=== PATIENT | female | born 1935 | race Caucasian/White ===

== ENCOUNTER 2022-04-23 17:33 | Inpatient (IN) | payer OTHER, MEDICARE ==
[~2022-04-23] VITALS: Ht 167.6 cm; Wt 58.1 kg
[2022-04-23 17:40] VITALS: BP_SYST 128
--- NOTE | 2022-04-23 17:49 | NUR ---
DR. ESCOTO AT BEDSIDE.
--- NOTE | 2022-04-23 18:20 | NUR ---
PT TAKEN FOR CT SCAN.
[2022-04-23 18:28] LABS: BASOPHILS % (AUTO) 0.5 % (0.0-2.0); EOSINOPHILS # (AUTO) 0.5 K/uL (0.0-0.4); EOSINOPHILS % (AUTO) 8.1 % (0.0-4.0); HEMATOCRIT 32.6 % (36-48); LYMPHOCYTES # (AUTO) 0.6 K/uL (1.0-5.5); LYMPHOCYTES % (AUTO) 9.5 % (20.5-51.5); MEAN CORPUSCULAR VOLUME 84 fL (79.0-98.0); MONOCYTES # (AUTO) 0.6 K/uL (0.0-1.0); MONOCYTES % (AUTO) 10.4 % (1.7-9.3); NEUTROPHILS # (AUTO) 4.2 K/uL (1.8-7.7); NEUTROPHILS % (AUTO) 71.5 % (40.0-70.0); PLATELET COUNT (AUTO) 295 K/uL (130-430); RED BLOOD CELL COUNT(AUTO) 3.87 MIL/uL (4.2-6.2); RED CELL DISTRIBUTION WIDTH 13.1 % (9.0-15.0); WHITE BLOOD COUNT (AUTO) 5.9 K/uL (4.8-10.8)
[2022-04-23 18:38] LABS: ANION GAP 4 (5-15); CALCIUM 8.6 mg/dL (8.4-11.0); CHLORIDE 97 mmol/L (98-107); CREATININE 1.85 mg/dL (0.55-1.30); GLUCOSE 146 mg/dL (70-99); UREA NITROGEN, BLOOD 48 mg/dL (8-21)
--- NOTE | 2022-04-23 18:39 | NUR ---
Placed in room 2 . Placed on ekg monitor, blood pressure machine and pulse oximeter. To gown for exam. Side rails up.
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
--- NOTE | 2022-04-23 18:42 | NUR ---
RECEIVED PT FROM JASMYN BALDERRAMA. ASSUMED CARE.
[2022-04-23 18:46] LABS: ALANINE AMINOTRANSFERASE 73 U/L (12-78); ALBUMIN 2.2 g/dL (3.4-4.8); ASPARTATE AMINOTRANSFERASE 100 U/L (10-37); TOTAL BILIRUBIN 0.3 mg/dL (0.0-1.0)
[2022-04-23 18:54] LABS: ACETAMINOPHEN < 1 ug/mL (1-30); ALCOHOL, BLOOD < 3 mg/dL (<10)
[2022-04-23] MEDS ORDERED: DIPHTH,PERTUSS(ACELL),TET VAC 0.5 ML VIAL (Tdap) I.M. ONE (19:15)
--- NOTE | 2022-04-23 19:20 | NUR ---
ALL CARE ENDORSED TO JASMYN ABAD. ALL QUESTIONS AND CONCERNS ADDRESSED.
--- NOTE | 2022-04-23 20:25 | NUR ---
Urine collected and sent to lab.
[2022-04-23 20:54] LABS: BILIRUBIN,URINE NEGATIVE (NEGATIVE); BLOOD, URINE NEGATIVE (NEGATIVE); CLARITY/URINE CLEAR (CLEAR); COLOR,URINE YELLOW (YELLOW); GLUCOSE,URINE NEGATIVE (NEGATIVE); KETONES,URINE NEGATIVE (NEGATIVE); LEUKOCYTE ESTERASE ,URINE NEGATIVE (NEGATIVE); NITRITE, URINE POSITIVE (NEGATIVE); PH,URINE 5.5 (5.0-8.0); PROTEIN URINE TRACE (NEGATIVE); UROBILINOGEN,URINE 0.2 (0.2-1.0)
[2022-04-23 21:20] LABS: BACTERIA,URINE MANY /HPF (None Seen); RBC,URINE NONE SEEN /HPF (0-3)
[2022-04-23 21:21] LABS: HYALINE CASTS, URINE 0-10 /LPF (None Seen); MUCUS,URINE 1+ /LPF (None Seen)
[2022-04-23 21:26] LABS: BARBITURATE, URINE NEGATIVE (NEG <=200); BENZODIAZEPINE, URINE NEGATIVE (NEG <=150); CANNABINOID, URINE NEGATIVE (NEG <=50); COCAINE, URINE NEGATIVE (NEG <=150); METHAMPHETAMINES SCREEN,URINE NEGATIVE (NEG <=500); OPIATE, URINE NEGATIVE (NEG <=100); PHENCYCLIDINE SCREEN,URINE NEGATIVE (NEG <=25); UR TRICYCLIC ANTIDEPRESSANTS NEGATIVE (NEG <=300); URINE AMPHETAMINE NEGATIVE (NEG <=500); URINE METHADONE NEGATIVE (NEG <=200); URINE OXYCODONE SCREEN NEGATIVE (NEG <=100); URINE PROPOXYPHENE SCREEN NEGATIVE (NEG <=300)
[2022-04-23] MEDS ORDERED: ONDANSETRON HCL 4 MG/2 ML VIAL IVP PRN (21:30)
[2022-04-23] MEDS ORDERED: DEXTROSE 50% JECT 50 ML DISP.SYRIN IVP PRN (21:30)
[2022-04-23] MEDS ORDERED: ZOLPIDEM TARTRATE 5 MG TABLET PO PRN (21:30)
[2022-04-23] MEDS ORDERED: MUPIROCIN 2% TOPICAL OINTMENT 22 GM NS PRN (21:30)
[2022-04-23] MEDS ORDERED: ACETAMINOPHEN 325 MG TABLET PO PRN (21:30)
[2022-04-23] MEDS ORDERED: MORPHINE 2 MG/ML INJ. SYRINGE IVP PRN ×2 (21:30)
[2022-04-23] MEDS ORDERED: DOCUSATE SODIUM 100 MG CAPSULE PO PRN (21:30)
[2022-04-23] MEDS ORDERED: MAGNESIUM SULFATE 50 ML IV PRN (21:30)
[2022-04-23] MEDS ORDERED: NACL 0.9% 1,000 ML IV ONE (21:45)
--- NOTE | 2022-04-23 22:01 | NUR ---
MARGOTH SANDOVAL collected and sent to lab.
--- NOTE | 2022-04-23 22:51 | NUR ---
Admit bed requested Patient will be admitted to care of . Admitted to MED/SURG unit. 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
[2022-04-23] MEDS: cefTRIAXone 1 GM IVPB PREMIX 50 ML IV SCH (22:53)
--- NOTE | 2022-04-23 23:04 | NUR ---
Ashley provided to pt as requested. Tolerated well.
[2022-04-24] VITALS (7 sets, daily range): BP systolic 131–156
--- NOTE | 2022-04-24 00:05 | NUR ---
Patient will be admitted to care of MD Medina. Admitted to MED SURG unit. Will go to room 133B. Complete and up to date summary report printed. SBAR report given at bedside to JASMYN Kate with opportunity for questions.
[2022-04-24] MEDS: POTASSIUM CHLORIDE 20 MEQ TAB.PRT.SR PO PRN ×3 (00:59→21:19)
--- NOTE | 2022-04-24 05:57 | NUR ---
JONNIE BLAKE( GRANDSON) CALLED TO CHECK ON HIS GRANDMOTHER AND VOICED HE WAS HER MEDICAL POA AND WANTED TO SPEAK WITH A WEB DATABASE DEVELOPER REGARDING OTHER PLACEMENT AT DISCHARGE, HE ALSO MENTIONED HIS GRANDMOTHER COULD BE A HANDFUL AND HOPEFULLY WE WANT SEE THAT SIDE OF HER- NOTE THE NUMBER FOR JONNIE AND THE [facility] DIRECTIVE ON THE CHART. WILL CONTINUE POC AND REPORT TO ONCOMING NURSE.
--- NOTE | 2022-04-24 06:01 | NUR ---
PT VOICED SHE IS NOT DIABETIC AND REFUSED TO HAVE HER BLOOD SUGAR TAKEN- WILL ENDORSE TO ONCOMING NURSE TO ADDRESS WITH MD. WILL CONTINUE POC.
--- NOTE | 2022-04-24 07:00 | NUR ---
receive the pt from val negro rn in a stable condition
--- NOTE | 2022-04-24 07:16 | NUR ---
receive the pt the discovery guide JASMYN Burton in a stable condition admitting dx of Arlyn PNA , Aox$ . no complain of pain . no s/s of SOB . will continue to monitor
[2022-04-24 08:52] LABS: ANION GAP 7 (5-15); CHLORIDE 101 mmol/L (98-107); CREATININE 1.56 mg/dL (0.55-1.30); GLUCOSE 102 mg/dL (70-99); POTASSIUM 3.4 mmol/L (3.5-5.1); UREA NITROGEN, BLOOD 42 mg/dL (8-21)
[2022-04-24 09:06] LABS: BASOPHILS % (AUTO) 0.4 % (0.0-2.0); EOSINOPHILS # (AUTO) 0.8 K/uL (0.0-0.4); EOSINOPHILS % (AUTO) 12.9 % (0.0-4.0); HEMATOCRIT 33.2 % (36-48); LYMPHOCYTES # (AUTO) 0.5 K/uL (1.0-5.5); LYMPHOCYTES % (AUTO) 8.1 % (20.5-51.5); MEAN CORPUSCULAR VOLUME 84 fL (79.0-98.0); MONOCYTES # (AUTO) 0.7 K/uL (0.0-1.0); MONOCYTES % (AUTO) 10.9 % (1.7-9.3); NEUTROPHILS # (AUTO) 4.1 K/uL (1.8-7.7); NEUTROPHILS % (AUTO) 67.7 % (40.0-70.0); PLATELET COUNT (AUTO) 307 K/uL (130-430); RED BLOOD CELL COUNT(AUTO) 3.94 MIL/uL (4.2-6.2); RED CELL DISTRIBUTION WIDTH 13.4 % (9.0-15.0)
[2022-04-24] MEDS ORDERED: amLODIPine BESYLATE 5 MG TABLET PO ONE ×2 (09:30→13:45)
--- NOTE | 2022-04-24 10:05 | NUR ---
was transferred to room 132 A for the sitter
--- NOTE | 2022-04-24 10:08 | NUR ---
pt discharge from the 10 day covid isolation
--- NOTE | 2022-04-24 10:09 | NUR ---
PATIENT IS TOTAL ASSIST WITH HER MOBILITY. UNKNOWN PRIOR LEVEL OF FUNCTION. TRIAL PHYSICAL THERAPY.
--- NOTE | 2022-04-24 10:35 | NUR ---
pt was discharge from 10 day isolation of Covid Addendum: 04/24/22 at 1905 by Evangelina Núñez RN RN wrong pt
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
[2022-04-24] MEDS ORDERED: SERT100T PO (12:12)
[2022-04-24] MEDS ORDERED: CLON-315 PO (12:12)
[2022-04-24] MEDS ORDERED: ALPR0.25 PO (12:12)
[2022-04-24] MEDS ORDERED: HYDR25TA4 PO (12:12)
[2022-04-24] MEDS ORDERED: AMLO5TAB4 PO (12:12)
[2022-04-24] MEDS ORDERED: ASCO500T20 PO (12:12)
[2022-04-24] MEDS ORDERED: PRO40 PO (12:12)
[2022-04-24] MEDS ORDERED: CLO (12:12)
[2022-04-24] MEDS ORDERED: CLON0.1T PO (12:43)
[2022-04-24] MEDS ORDERED: ALPRAZolam 0.25 MG TABLET PO PRN (13:30)
[2022-04-24] MEDS ORDERED: cloNIDine HCL 0.1 MG TABLET PO PRN (13:30)
[2022-04-24] MEDS ORDERED: SERTRALINE HCL 50 MG TABLET PO ONE (13:45)
[2022-04-24] MEDS ORDERED: HYDROCHLOROTHIAZIDE 25 MG TABLET (HCTZ) PO ONE (13:45)
[2022-04-24] MEDS ORDERED: PANTOPRAZOLE SODIUM 40 MG TAB PO ONE (13:45)
[2022-04-24] MEDS ORDERED: ASCORBIC ACID 500 MG TABLET PO ONE (13:45)
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
[2022-04-24] MEDS: NACL 0.9% 1,000 ML IV SCH ×2 (15:14→17:32)
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
--- NOTE | 2022-04-24 18:36 | NUR ---
will endorse to production supervisor off shift RN for continuity of care
--- NOTE | 2022-04-24 19:08 | NUR ---
will endorse to customer account representative RN fo continuity of care
[2022-04-24] MEDS: LORazepam 1 MG TABLET PO PRN (21:19)
[2022-04-24] MEDS: cefTRIAXone 1 GM IVPB PREMIX 50 ML IV SCH (21:30)
[2022-04-24] MEDS ORDERED: cefTRIAXone 1 GM IVPB PREMIX 50 ML IV ONE (22:45)
[2022-04-25 02:00] VITALS: BP_SYST 147
[2022-04-25] MEDS: NACL 0.9% 1,000 ML IV SCH (02:10)
--- NOTE | 2022-04-25 05:10 | NUR ---
THIS RN CALLED TO NURSES STATION TO RECEIVE A CALL FROM DR. BOTELLO- HE ASKED HOW THE PATIENT'S NIGHT WAS AND I INFORMED HIM SHE HAD NO BEHAVIOR OUTBURST, HOWEVER I DID GIVE HER A PRN DOSE OF ATIVAN 1MG PO FOR ANXIETY AND SHE HAS BEEN FINE, SHE SLEPT MAJORITY OF THE NIGHT. MD VOICED HE WOULD BE TRAVELING TODAY TO NOT BE ALARMED IF STAFF COULD NOT REACH HIM IMMEDIATELY THAT HE WOULD RETURN THE PHONE CALL ONCE HE HAD A CHANCE. WILL REPORT TO ONCOMING NURSE- NCA CERTIFIED CONCIERGE AWARE.
--- NOTE | 2022-04-25 05:15 | NUR ---
SHIFT EVENTS BELOW STARTING 04/24/2022 7PM-7AM 1914: THIS RN AT BEDSIDE FOR SHIFT CHANGE- NOTE MD ORDERS FOR SITTER. PATIENT WITHOUT S/S OR C/O ANXIETY AT THIS TIME. HYDRATION AND CALL LIGHT IN EASY REACH- BED ALARM ON AND PROPERLY FUNCTIONING FOR SAFETY. NOTE THIS RN WILL BE THE SITTER FOR THIS SHIFT. 2118: WHILE MAKING MEDICATION ROUNDS THIS RN TO NOTE PATIENT SLIGHTLY ANXIOUS IN REGARDS TO HAVING HER BLOOD SUGAR TAKEN - SHE VOICED " I AM NOT DIABETIC- WHY KEEP STICKING ME?". PATIENT REFUSED HER ACHS PBS MD ORDERED. THIS RN TO NOTE PATIENT'S POTASSIUM 3.4 PER LAB DRAW THIS MORNING-POTASSIUM 40MEQ PO ADMINISTERED AT THIS TIME WITH ATIVAN 1MG PO FOR ANXIETY. 2300 : PATIENT NOTED EATING A SNACK BEFORE BEDTIME AND GOT UP TO USE THE BEDSIDE COMMODE. 0 S/S OF ANXIETY OR BEHAVIOR OUTBURST THUS FAR. 0500: PATIENT RESTING IN BED WITH EYES CLOSED- 0 S/S OF ANXIETY OR BEHAVIOR OUTBURST THIS SHIFT- NOTE eMAR AND FLOWSHEETS THIS SHIFT. SITTER REMAINS PRESENT AT BEDSIDE MD ORDERED. BED ALARM PROPERLY FUNCTIONING FOR SAFETY. 0506: NOTE PT UP TO BEDSIDE COMMODE AND BEGINS TO COMPLAIN THAT IT HURTS WHEN SHE IS VOIDING AND ALSO STATES SHE HAS A SORE THROAT THAT HURTS. THIS RN TO OFFER WARM TEA AND SHE VOICED SHE WOULD TALK TO THE DOCTOR WHEN HE CAME AROUND. WILL CONTINUE POC AND REPORT TO ONCOMING NURSE
[2022-04-25 07:04] LABS: ANION GAP 2 (5-15); CALCIUM 8.7 mg/dL (8.4-11.0); CHLORIDE 105 mmol/L (98-107); CREATININE 1.42 mg/dL (0.55-1.30); GLUCOSE 92 mg/dL (70-99); POTASSIUM 4.5 mmol/L (3.5-5.1); UREA NITROGEN, BLOOD 32 mg/dL (8-21)
[2022-04-25 07:13] LABS: BASOPHILS % (AUTO) 0.3 % (0.0-2.0); EOSINOPHILS % (AUTO) 16.2 % (0.0-4.0); HEMATOCRIT 32.8 % (36-48); LYMPHOCYTES # (AUTO) 0.6 K/uL (1.0-5.5); LYMPHOCYTES % (AUTO) 9.4 % (20.5-51.5); MEAN CORPUSCULAR VOLUME 85 fL (79.0-98.0); MONOCYTES # (AUTO) 0.7 K/uL (0.0-1.0); MONOCYTES % (AUTO) 10.9 % (1.7-9.3); NEUTROPHILS % (AUTO) 63.2 % (40.0-70.0); PLATELET COUNT (AUTO) 330 K/uL (130-430); RED BLOOD CELL COUNT(AUTO) 3.85 MIL/uL (4.2-6.2); RED CELL DISTRIBUTION WIDTH 13.7 % (9.0-15.0); WHITE BLOOD COUNT (AUTO) 6.4 K/uL (4.8-10.8)
[2022-04-25 07:37] VITALS: BP_SYST 163
[2022-04-25] MEDS ORDERED: amLODIPine BESYLATE 5 MG TABLET PO SCH (09:00)
[2022-04-25] MEDS ORDERED: BENZOCAINE/MENTHOL 1 EACH LOZENGE MM PRN (09:15)
--- NOTE | 2022-04-25 09:15 | NUR ---
LUGGAGE REPAIRER [facility] Daysi responded to a Discharge to Psych order. As indicated on order, packet was faxed to [place] Dahiana/Tanya P: F: [facility] will continue to be available as needed. Addendum: 04/25/22 at 1337 by Daysi Coleman MECHANIC FOREMAN MARTHA Tavarez contacted [facility] Intake to obtain an update. According to Ishan, patient's chart was still being reviewed. Addendum: 04/25/22 at 1617 by Daysi Coleman MECHANIC FOREMAN MARTHA Tavarez contacted [facility] to obtain an update, as in previous update according perez [place] patient's packet is still under review.
[2022-04-25] MEDS: SERTRALINE HCL 50 MG TABLET PO SCH (09:24)
[2022-04-25] MEDS: ASCORBIC ACID 500 MG TABLET PO SCH (09:24)
[2022-04-25] MEDS: HYDROCHLOROTHIAZIDE 25 MG TABLET (HCTZ) PO SCH (09:25)
[2022-04-25] MEDS: PANTOPRAZOLE SODIUM 40 MG TAB PO SCH (09:25)
[2022-04-25] MEDS: amLODIPine BESYLATE 5 MG TABLET PO SCH (09:25)
[2022-04-25 17:00] VITALS: BP_SYST 159
--- NOTE | 2022-04-25 17:40 | NUR ---
Dietitian Recommendations * Regular diet, Ensure Enlive BID (ONS yields 700 kcal/day, 40 gm protein/day) * Encourage increase PO intakes LP, MS, RD Please refer to Nutrition Assessment for details. Addendum: 04/27/22 at [address] Amended: Links added.
--- NOTE | 2022-04-25 18:43 | NUR ---
DISCONTINUE SITTER PER DR AVENDAÑO PATIENT NOT A SUICIDAL, NO EPISODES OF BEING AGGRESSIVE TO STAFF SINCE ADMISSION, COOPERATIVE AND PARTICIPATE IN CARE. PATIENT IS CLOSED TO THE STATION FOR CONTINOUS MONITORING, DISCONTINUE SITTER.
--- NOTE | 2022-04-25 19:15 | NUR ---
OPENING NOTE REPORT RECEIVED FROM DAYSHIFT NURSE. PATIENT RECEIVED LYING IN BED, RESTING. NO S/S OF ACUTE DISTRESS. BREATHING EVEN AND UNLABORED. NO IV SITE, WILL INSERT ONE LATER. CALL LIGHT WITH PATIENT. BED ALARM ON. BED IS LOCKED AND AT LOWEST POSITION. WILL CONTINUE TO MONITOR.
[2022-04-25 20:00] VITALS: BP_SYST 153
--- NOTE | 2022-04-25 21:30 | NUR ---
IV INSERTED NEW IV INSERTED AT RIGHT FOREARM, 20 GAUGE, PATIENT TOLERATED WELL. ALL NEEDS MET. BED ALARM ON. CALL LIGHT WITH PATIENT. WILL CONTINUE TO MONITOR.
[2022-04-25] MEDS ORDERED: cefTRIAXone 1 GM VIAL ONE (22:19)
[2022-04-25] MEDS: cefTRIAXone 1 GM IVPB PREMIX 50 ML IV SCH (22:22)
[2022-04-26] VITALS: BP_SYST 152
--- NOTE | 2022-04-26 01:00 | NUR ---
[facility] spoke with shannan at intake and she confirmed that we need for prior to transfer repaeat rapid test , medical clearance, po antibiotic. for report to unit [phone] fax [phone] for updates [phone]
--- NOTE | 2022-04-26 03:00 | NUR ---
ROUNDS PATIENT IN BED, RESTING. NO SIGNS OF DISCOMFORT. CHEST RISE AND FALL EVEN BILATERALLY. ALL NEEDS MET. WILL CONTINUE TO MONITOR.
--- NOTE | 2022-04-26 06:31 | NUR ---
CLOSING NOTE PATIENT IN BED, RESTING. NO S/S OF ACUTE DISTRESS. BREATHING EVEN AND UNLABORED. SKIN WARM AND DRY TO TOUCH. ALL NEEDS MET THROUGHOUT SHIFT. FALL, SAFETY PRECAUTIONS MAINTAINED THROUGHOUT SHIFT. WILL CONTINUE TO MONITOR UNTIL PATIENT CARE IS ENDORSED TO ONCOMING DAYSHIFT NURSE.
[2022-04-26 07:32] LABS: ANION GAP 6 (5-15); CALCIUM 8.8 mg/dL (8.4-11.0); CHLORIDE 103 mmol/L (98-107); CREATININE 1.46 mg/dL (0.55-1.30); GLUCOSE 84 mg/dL (70-99); POTASSIUM 4.3 mmol/L (3.5-5.1); UREA NITROGEN, BLOOD 30 mg/dL (8-21)
[2022-04-26 07:34] LABS: BASOPHILS % (AUTO) 0.3 % (0.0-2.0); EOSINOPHILS % (AUTO) 13.3 % (0.0-4.0); HEMATOCRIT 32.6 % (36-48); LYMPHOCYTES # (AUTO) 0.7 K/uL (1.0-5.5); LYMPHOCYTES % (AUTO) 9.4 % (20.5-51.5); MEAN CORPUSCULAR VOLUME 85 fL (79.0-98.0); MONOCYTES # (AUTO) 0.8 K/uL (0.0-1.0); MONOCYTES % (AUTO) 10.7 % (1.7-9.3); NEUTROPHILS % (AUTO) 66.3 % (40.0-70.0); PLATELET COUNT (AUTO) 352 K/uL (130-430); RED BLOOD CELL COUNT(AUTO) 3.85 MIL/uL (4.2-6.2); RED CELL DISTRIBUTION WIDTH 13.5 % (9.0-15.0); WHITE BLOOD COUNT (AUTO) 7.6 K/uL (4.8-10.8)
[2022-04-26] MEDS ORDERED: NITR-85 PO ×2 (07:41)
[2022-04-26 08:00] VITALS: BP_SYST 160
--- NOTE | 2022-04-26 08:30 | NUR ---
PASTRY MIXER MARTHA Tavarez reviewed patients notes to obtain update on psych placement. MARTHA consulted with assigned RN Maxime regarding obtaining order for rapid COVID, order to discharge to psych (if medically stable), and change to p.o antibiotics. MARTHA informed java web services developer would fax requested documents to [facility] when ready. MARTHA will continue to be available as needed Addendum: 04/26/22 at 1127 by Daysi BRADLEY MARTHA Tavarez faxed updated clinicals to the following for geropsych placement; - [facility] (updated) P: F: - [facility] P: F: - [facility] P: F: Addendum: 04/26/22 at 1512 by Daysi BRADLEY ACSW contacted [facility] and [facility] and received the following update [facility]- Patient's packet is still under review. Concerns related to patient not being on a hold, and her ability to "voluntarily" commit to inpatient treatment. ACSW informed intake patient had a POA Will (grandson) who is in agreement and willing to consent to inpatient. [facility]- Following patient being declined due to concerns with hold, ACSW advocated for patient and requested chart to be reviewed again. [facility] also expressed patient would need to voluntarily consent to inpatient. ACSW informed them as well of patient's POA is in agreement. They requested to speak to assigned RN Maxime for report and ACSW transferred call. ACSW will continue to be available as needed.
[2022-04-26] MEDS ORDERED: NITROFURANTOIN MONOHYD/M-CRYST 100 MG CAPSULE (MacroBID) PO SCH (09:00)
[2022-04-26] MEDS: SERTRALINE HCL 50 MG TABLET PO SCH (09:16)
[2022-04-26] MEDS: PANTOPRAZOLE SODIUM 40 MG TAB PO SCH (09:16)
[2022-04-26] MEDS: ASCORBIC ACID 500 MG TABLET PO SCH (09:17)
[2022-04-26] MEDS: amLODIPine BESYLATE 5 MG TABLET PO SCH (09:17)
[2022-04-26] MEDS: HYDROCHLOROTHIAZIDE 25 MG TABLET (HCTZ) PO SCH (09:17)
[2022-04-26 11:31] VITALS: BP_SYST 151
[2022-04-26 15:32] VITALS: BP_SYST 141
--- NOTE | 2022-04-26 18:17 | NUR ---
Shift Summary: patient is AAOX3-4. vitals are stable. medication given as scheduled. covid swab collected. spoke to bilingual case manager regarding discharge plans. spoke to Emelia at [facility] ,[phone], regarding possible acceptance to facility. emelia called later in the evening to inform that theyre unable to accept patient due to not meeting facility criteria. Huong, bilingual case manager, informed. brodie goodrich, garden labourer, called to inform results of urine culture. MRO/ esbl found in urine. patient placed in isolation. Primary physician called and informed about results. antibiotics changed per physician. patient currently resting. will endorse to oncoming nurse. call light within reach. bed set to low and locked. patient has no questions or concerns during shift.
[2022-04-26 20:00] VITALS: BP_SYST 150
[2022-04-26] MEDS: LORazepam 1 MG TABLET PO PRN (20:28)
[2022-04-26] MEDS: MEROPENEM 1 GM in NS 100 ML IV SCH (23:18)
[2022-04-27 00:49] VITALS: BP_SYST 146
[2022-04-27] MEDS: MEROPENEM 1 GM in NS 100 ML IV SCH ×2 (06:43→17:14)
--- NOTE | 2022-04-27 06:50 | NUR ---
PATIENT REFUSED HER BS CHECKS THIS SHIFT MD ORDERED. DURING HS MEDICATION ROUNDS PATIENT REFUSED BECAUSE SHE STATED " I AM NOT DIABETIC AND I AM TIRED OF BEING STUCK". THIS MORNING THIS RN TO NOTE LAB PREVIOUSLY IN THE ROOM WHILE MAKING ROUNDS ON MY ASSIGNMENT, WHEN ENTERING PATIENT'S ROOM AND VOICING THAT I WAS COMING TO CHECK HER BLOOD SUGAR, SHE VOICED "PEOPLE ALWAYS COME IN HERE AND POKE ON ME AND NEVER TELL ME WHAT THEY ARE DOING". THIS RN TO EDUCATE PATIENT ON THE PURPOSE OF LAB WORK IN THE MORNING AND VOICED THAT CHECKING HER SUGAR WAS A DOCTOR'S ORDER BUT IF SHE TELLS ME NO- THEN I CAN'T CHECK IT PER HER REFUSAL, PT VOICED UNDERSTANDING OF REFUSING BLOOD SUGAR CHECK AND STATED AGAIN " I AM NOT DIABETIC." WILL CONTINUE POC AND REPORT TO ONCOMING NURSE.
[2022-04-27 07:00] VITALS: BP_SYST 137
--- NOTE | 2022-04-27 07:13 | NUR ---
receive the patient from the nights hfit soy Kate in a stable condition . no sign and symptoms of shortness of breath , no complain of pain . will continuity to monitor
[2022-04-27 08:00] VITALS: BP_SYST 137
[2022-04-27 08:35] LABS: ANION GAP 7 (5-15); CALCIUM 8.7 mg/dL (8.4-11.0); CHLORIDE 103 mmol/L (98-107); CREATININE 1.39 mg/dL (0.55-1.30); GLUCOSE 89 mg/dL (70-99); POTASSIUM 4.1 mmol/L (3.5-5.1); UREA NITROGEN, BLOOD 36 mg/dL (8-21)
[2022-04-27] MEDS: PANTOPRAZOLE SODIUM 40 MG TAB PO SCH (09:40)
[2022-04-27] MEDS: SERTRALINE HCL 50 MG TABLET PO SCH (09:40)
[2022-04-27] MEDS: HYDROCHLOROTHIAZIDE 25 MG TABLET (HCTZ) PO SCH (09:40)
[2022-04-27] MEDS: ASCORBIC ACID 500 MG TABLET PO SCH (09:40)
[2022-04-27] MEDS: amLODIPine BESYLATE 5 MG TABLET PO SCH (09:41)
[2022-04-27 14:12] LABS: BASOPHILS % (AUTO) 0.4 % (0.0-2.0); EOSINOPHILS # (AUTO) 0.9 K/uL (0.0-0.4); EOSINOPHILS % (AUTO) 15.4 % (0.0-4.0); HEMATOCRIT 33.1 % (36-48); LYMPHOCYTES # (AUTO) 0.5 K/uL (1.0-5.5); LYMPHOCYTES % (AUTO) 8.7 % (20.5-51.5); MEAN CORPUSCULAR VOLUME 84 fL (79.0-98.0); MONOCYTES # (AUTO) 0.7 K/uL (0.0-1.0); MONOCYTES % (AUTO) 13.1 % (1.7-9.3); NEUTROPHILS # (AUTO) 3.5 K/uL (1.8-7.7); NEUTROPHILS % (AUTO) 62.4 % (40.0-70.0); PLATELET COUNT (AUTO) 308 K/uL (130-430); RED BLOOD CELL COUNT(AUTO) 3.92 MIL/uL (4.2-6.2); RED CELL DISTRIBUTION WIDTH 13.4 % (9.0-15.0); WHITE BLOOD COUNT (AUTO) 5.6 K/uL (4.8-10.8)
--- NOTE | 2022-04-27 17:41 | NUR ---
will endorse to shift rn for continuity of care
[2022-04-27 20:00] VITALS: BP_SYST 145
[2022-04-27] MEDS: LORazepam 1 MG TABLET PO PRN (22:00)
[2022-04-28] VITALS: BP_SYST 159
[2022-04-28] MEDS: MEROPENEM 1 GM in NS 100 ML IV SCH (07:07)
[2022-04-28 08:00] VITALS: BP_SYST 141
--- NOTE | 2022-04-28 08:00 | NUR ---
Received patient in bed alert and oriented x 2, vitals stable, patient appear very confused, and disoriented, hyperverbal, meds given as ordered, denies pain, in no acute distress, bed side commode inplace, call light to reach, bed in low position, RN will continue to monitor patient closely.
[2022-04-28] MEDS: ASCORBIC ACID 500 MG TABLET PO SCH (10:54)
[2022-04-28] MEDS: HYDROCHLOROTHIAZIDE 25 MG TABLET (HCTZ) PO SCH (10:54)
[2022-04-28] MEDS: amLODIPine BESYLATE 5 MG TABLET PO SCH (10:55)
[2022-04-28] MEDS: SERTRALINE HCL 50 MG TABLET PO SCH (10:57)
[2022-04-28] MEDS: PANTOPRAZOLE SODIUM 40 MG TAB PO SCH (11:00)
[2022-04-28 11:24] LABS: ANION GAP 9 (5-15); CALCIUM 9.2 mg/dL (8.4-11.0); CHLORIDE 102 mmol/L (98-107); CREATININE 1.46 mg/dL (0.55-1.30); GLUCOSE 131 mg/dL (70-99); POTASSIUM 4.2 mmol/L (3.5-5.1); UREA NITROGEN, BLOOD 35 mg/dL (8-21)
[2022-04-28 12:00] VITALS: BP_SYST 130
[2022-04-28] MEDS: ERTAPENEM SODIUM 0.5 GM in NS 50 ML IV SCH (12:00)
--- NOTE | 2022-04-28 14:50 | NUR ---
Tried to put IV in twice,patient's vein keeps rolling x2,Charge Nurse Adriana made aware,she informed to call PCP.
--- NOTE | 2022-04-28 14:56 | NUR ---
Patient signed consent for a mid line. Placed in the chart at this time
[2022-04-28 15:54] LABS: BASOPHILS % (AUTO) 0.3 % (0.0-2.0); EOSINOPHILS # (AUTO) 0.9 K/uL (0.0-0.4); EOSINOPHILS % (AUTO) 14.3 % (0.0-4.0); HEMATOCRIT 35.9 % (36-48); LYMPHOCYTES # (AUTO) 0.6 K/uL (1.0-5.5); LYMPHOCYTES % (AUTO) 8.7 % (20.5-51.5); MEAN CORPUSCULAR VOLUME 85 fL (79.0-98.0); MONOCYTES # (AUTO) 0.8 K/uL (0.0-1.0); MONOCYTES % (AUTO) 11.8 % (1.7-9.3); NEUTROPHILS # (AUTO) 4.3 K/uL (1.8-7.7); NEUTROPHILS % (AUTO) 64.9 % (40.0-70.0); PLATELET COUNT (AUTO) 367 K/uL (130-430); RED CELL DISTRIBUTION WIDTH 13.5 % (9.0-15.0); WHITE BLOOD COUNT (AUTO) 6.6 K/uL (4.8-10.8)
[2022-04-28 16:00] VITALS: BP_SYST 132
--- NOTE | 2022-04-28 16:15 | NUR ---
patient in bed resting well, no signs of distress noted, patient able to make needs known, call light placed to reach.
[2022-04-28 20:00] VITALS: BP_SYST 147
[2022-04-29] VITALS: BP_SYST 140
--- NOTE | 2022-04-29 07:00 | NUR ---
receive the pt from the marine extension agent rn in a stable condition . will continue to monitor
[2022-04-29 08:00] VITALS: BP_SYST 153
[2022-04-29] MEDS: HYDROCHLOROTHIAZIDE 25 MG TABLET (HCTZ) PO SCH (09:52)
[2022-04-29] MEDS: PANTOPRAZOLE SODIUM 40 MG TAB PO SCH (09:53)
[2022-04-29] MEDS: ASCORBIC ACID 500 MG TABLET PO SCH (09:53)
[2022-04-29] MEDS: amLODIPine BESYLATE 5 MG TABLET PO SCH (09:53)
--- NOTE | 2022-04-29 11:00 | NUR ---
PHARMACEUTICAL DETAILER ACSW Daysi received a call from [facility] inquiring into whether there is a continued need for geropsych placement. ACSW informed them that discharge plans are for SNF placement due to needing IV antibiotics at this time. ACSW will continue to be available as needed
[2022-04-29] MEDS: ERTAPENEM SODIUM 0.5 GM in NS 50 ML IV SCH (13:08)
[2022-04-29] MEDS: SERTRALINE HCL 50 MG TABLET PO SCH (13:29)
--- NOTE | 2022-04-29 14:37 | NUR ---
DISCHARGE PLANNING Order for dc planning [facility], called and lt msg with carmine Solis this morning, ph [phone]. Received call back from Will is agreeable with [facility], wants one that has a locked unit. Updated dc program services planner. Addendum: 04/30/22 at 0913 by Areli Patel RN Late Entry 04/29/22: add to note above, Per Will his voicemail is not working properly if does not answer can call his Pia, ph [phone].
--- NOTE | 2022-04-29 14:57 | NUR ---
Discharge Planning: DCP faxed pt referral to [facility] [phone], Paula Baker [phone]. DCP to follow up. Addendum: 04/29/22 at 1630 by Pamela Angel DP [place] [phone]- can accept pt in locked unit, Paula Baker [phone]- pt in locked unit DCP made CM aware.
--- NOTE | 2022-04-29 19:20 | NUR ---
will endorse to night rn for continuity of care
--- NOTE | 2022-04-29 19:30 | NUR ---
OPENING NOTES: Patient received from AM shift. PICC line nurse is here and is currently placing midline as ordered. Patient is awake and seems confused with no s/s of distress at this time. Chest rise is even and unlabored on RA. Patient is being treated for a UTI and is currently stable at this time and safety measures are in place as per protocol. Will resume care and continue to monitor throughout the shift.
[2022-04-29 20:00] VITALS: BP_SYST 165
[2022-04-29] MEDS: LORazepam 1 MG TABLET PO PRN (20:56)
[2022-04-29] MEDS: INSULIN LISPRO SLIDING SCALE 100 UNITS/ML, 3 ML VIAL (humaLOG) SUBCUT PRN (21:02)
--- NOTE | 2022-04-30 | NUR ---
PATIENT RESTING: Patient resting quietly. No acute distress noted. Vital signs within normal range. Catapress was administered during 2100 meds due to patient BP being 165/85. Medication was effective and BP is now 143/89. Will continue to monitor.
[2022-04-30 00:15] VITALS: BP_SYST 147
--- NOTE | 2022-04-30 06:46 | NUR ---
CLOSING NOTES: Patient is in bed resting no s/s of distress is noted at this time and chest rise is even and unlabored at this time. Patient is currently stable at this time, safety measures are in place and patient has call light within reach. All current shift needs have been met at this time. Will differ current care to AM shift nurse for continuity of care.
--- NOTE | 2022-04-30 07:20 | NUR ---
receive the pt from yun . in a stable condition . no complain of pain at this time . no sign and symptoms of respiratory distress
[2022-04-30 08:00] VITALS: BP_SYST 176
--- NOTE | 2022-04-30 09:14 | NUR ---
DISCHARGE PLANNING Spoke with Dr Jackson in ns station, informed [facility] accepting pt. States pt ready for dc today, no Psych re-eval needed, Psychiatrist will see pt at SNF. States will be under Dr Galarza. Spoke with Ailyn at [facility], pt accepted going to room 128B, report [phone], would prefer [address]. Informed that would be under Dr Galarza. Informed dc load planner and set up transportation with [facility] for [address]. Called & updated ronak Solis, ph [phone], is agreeable with dc to [facility] today, already spoke with Ailyn yest and wants that facility. Updated pt's nurse.
--- NOTE | 2022-04-30 09:17 | NUR ---
Discharge Planning: CAP arranged transport with [facility] [phone] BLS 3:00pm to [place] [phone] RM 128B. DCP made CM aware and patient packet taken to nurse station. Addendum: 04/30/22 at 1242 by Pamela Angel DP [facility] [phone] BLS 8:00pm to [place] [phone] RM 128B facility has limited staffing.
[2022-04-30] MEDS: HYDROCHLOROTHIAZIDE 25 MG TABLET (HCTZ) PO SCH (10:31)
[2022-04-30] MEDS: amLODIPine BESYLATE 5 MG TABLET PO SCH (10:32)
[2022-04-30] MEDS: PANTOPRAZOLE SODIUM 40 MG TAB PO SCH (10:32)
[2022-04-30] MEDS: ASCORBIC ACID 500 MG TABLET PO SCH (10:32)
[2022-04-30] MEDS: SERTRALINE HCL 50 MG TABLET PO SCH (10:33)
[2022-04-30] MEDS: ERTAPENEM SODIUM 0.5 GM in NS 50 ML IV SCH (11:24)
[2022-04-30] MEDS: INSULIN LISPRO SLIDING SCALE 100 UNITS/ML, 3 ML VIAL (humaLOG) SUBCUT PRN (11:55)
--- NOTE | 2022-04-30 14:40 | NUR ---
gave report to charleen olivier of [place] the admitting RN .
--- NOTE | 2022-04-30 14:40 | NUR ---
rn was able to speak to the repairer of the patient . informed her that the patient will be transferred today . gave all the necessary information the repairer . the repairer said she will call jeovany thompson tomorrow .
[2022-04-30 16:40] VITALS: BP_SYST 126
--- NOTE | 2022-04-30 17:30 | NUR ---
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
--- NOTE | 2022-05-01 07:37 | NUR ---
PHYSICAL THERAPY CO-SIGN The Physical Therapy Progress Notes documented by Tail Worker have been reviewed. Reviewed/Co-Signed by: Tristin Mederos Documentation Done by: CLAUDIA SALAZAR PTA Addendum: 05/01/22 at 0738 by Tristin Mederos PT Amended: Links added.
== END 2022-04-30 17:15 | DRG 689 ==
LOC: SED 17:33 → SMU 21:28
PROVIDERS: ADMIT Family Medicine; ATTEND Family Medicine
PROC: 05HY33Z Insertion of Infusion Device into Upper Vein, Percutaneous Approach (ICD-10-PCS; principal; 2022-04-27)
PROC: B54MZZA Ultrasonography of Right Upper Extremity Veins, Guidance (ICD-10-PCS; 2022-04-27)
DX: N39.0 Urinary tract infection, site not specified (principal); E43 Unspecified severe protein-calorie malnutrition; N17.0 Acute kidney failure with tubular necrosis; G93.41 Metabolic encephalopathy; F33.1 Major depressive disorder, recurrent, moderate; G30.9 Alzheimer's disease, unspecified; I10 Essential (primary) hypertension; E87.6 Hypokalemia; R74.01 Elevation of levels of liver transaminase levels; Z20.822 Contact with and (suspected) exposure to COVID-19; F02.80 Dementia in other diseases classified elsewhere, unspecified severity, without behavioral disturbance, psychotic disturbance, mood disturbance, and anxiety; Z68.20 Body mass index [BMI] 20.0-20.9, adult
CPT/HCPCS: 36415; 70450-TC; 71045; 76376; 76770; 80048; 80053; 80307; 81000; 82962; 83735; 84484; 85025; 87081; 87086; 90715; 93005; 97110-GP; 97116-GP; 97530-GP; 99285; G0480; G0481; G0482; J0696; J1335; J2185; J2270; U0003

== ENCOUNTER 2022-11-01 13:37 | Emergency (ER) | payer OTHER, MEDICARE ==
[~2022-11-01] VITALS: Ht 162.6 cm; Wt 63.5 kg
[~2022-11-01 13:37] MED LIST: ALPR0.25 PO; AMLO5TAB4 PO; ASCO500T20 PO; CLON0.1T PO; HYDR25TA4 PO; PRO40 PO; SERT100T PO
[2022-11-01 13:38] VITALS: BP_SYST 131
[2022-11-01 15:28] LABS: BASOPHILS % (AUTO) 0.7 % (0.0-2.0); EOSINOPHILS # (AUTO) 0.2 K/uL (0.0-0.4); EOSINOPHILS % (AUTO) 3.6 % (0.0-4.0); HEMATOCRIT 36.9 % (36-48); HEMOGLOBIN 12.3 g/dL (12.0-16.0); LYMPHOCYTES # (AUTO) 0.9 K/uL (1.0-5.5); LYMPHOCYTES % (AUTO) 18.9 % (20.5-51.5); MEAN CORPUSCULAR HEMOGLOBIN 28 pg (27-31); MEAN CORPUSCULAR HGB CONC 33 % (32-36); MEAN CORPUSCULAR VOLUME 84 fL (79.0-98.0); MONOCYTES # (AUTO) 0.5 K/uL (0.0-1.0); NEUTROPHILS # (AUTO) 3.1 K/uL (1.8-7.7); NEUTROPHILS % (AUTO) 65.8 % (40.0-70.0); PLATELET COUNT (AUTO) 218 K/uL (130-430); RED BLOOD CELL COUNT(AUTO) 4.38 MIL/uL (4.2-6.2); RED CELL DISTRIBUTION WIDTH 14.6 % (9.0-15.0); WHITE BLOOD COUNT (AUTO) 4.7 K/uL (4.8-10.8)
[2022-11-01 15:40] LABS: ANION GAP 3 (5-15); CALCIUM 8.8 mg/dL (8.4-11.0); CHLORIDE 101 mmol/L (98-107); CREATININE 1.44 mg/dL (0.55-1.30); GLUCOSE 96 mg/dL (70-99); UREA NITROGEN, BLOOD 38 mg/dL (8-21)
[2022-11-01 15:44] LABS: ALANINE AMINOTRANSFERASE 20 U/L (12-78); ALBUMIN 3.5 g/dL (3.4-4.8); AMYLASE 34 U/L (0-100); ASPARTATE AMINOTRANSFERASE 16 U/L (10-37); LIPASE 69 U/L (73-393); TOTAL BILIRUBIN 0.2 mg/dL (0.0-1.0)
[2022-11-01 15:54] LABS: INR 0.9 (0.8-1.2); PROTHROMBIN TIME 9.8 SECS (9.5-12.5)
[2022-11-01] MEDS ORDERED: LORazepam 2 MG/ML VIAL ONE (17:08)
[2022-11-01] MEDS ORDERED: LORazepam 2 MG/ML VIAL IM ONE (17:15)
[2022-11-01] MEDS ORDERED: amLODIPine BESYLATE 5 MG TABLET PO ONE (20:15)
[2022-11-01] MEDS ORDERED: HYDROCHLOROTHIAZIDE 12.5 MG CAPSULE (HCTZ) PO ONE (20:15)
[2022-11-01] MEDS ORDERED: cloNIDine HCL 0.1 MG TABLET PO ONE (20:15)
[2022-11-01 21:05] VITALS: BP_SYST 148
== END 2022-11-01 21:05 | disposition home or self-care (01) ==
LOC: SED 13:37
DX: K62.5 Hemorrhage of anus and rectum (principal); Z79.899 Other long term (current) drug therapy
CPT/HCPCS: 99285; 74176; 80053; 82150; 83690; 85025; 85610; 85730; 86886; 86900; 86901; 36415; 76376; 96372; 83605; J2060